=== PATIENT | female | born 1980 | race Two or more races ===

== ENCOUNTER 2020-02-07 10:45 | Inpatient (IN) | payer OTHER ==
[~2020-02-07] VITALS: Ht 160 cm; Wt 74.4 kg
[2020-02-16] MEDS ORDERED: Tylenol #3 PO (11:09)
== END 2020-02-16 11:46 | DRG 743 ==
LOC: O/R 02-13 05:40 → OB/GYN 02-13 05:40 → SURH 02-13 10:45 → OB/GYN 02-16 11:46
PROVIDERS: ADMIT Obstetrics & Gynecology; ATTEND Obstetrics & Gynecology
PROC: 0DNU0ZZ Release Omentum, Open Approach (ICD-10-PCS; 2020-02-13)
PROC: 0UB60ZZ Excision of Left Fallopian Tube, Open Approach (ICD-10-PCS; 2020-02-13)
PROC: 0TJB8ZZ Inspection of Bladder, Via Natural or Artificial Opening Endoscopic (ICD-10-PCS; 2020-02-13)
PROC: 0UT90ZZ Resection of Uterus, Open Approach (ICD-10-PCS; principal; 2020-02-13 16:30)
DX: D25.1 Intramural leiomyoma of uterus (principal); N92.0 Excessive and frequent menstruation with regular cycle; R10.2 Pelvic and perineal pain; N94.89 Other specified conditions associated with female genital organs and menstrual cycle; N70.11 Chronic salpingitis; K66.0 Peritoneal adhesions (postprocedural) (postinfection); N72 Inflammatory disease of cervix uteri